=== PATIENT | female | born 1955 | race Caucasian/White ===

== ENCOUNTER → 2017-04-10 | Outpatient (CLI) | payer BC ==
[~2017-04-10] MED LIST: LORTAB 5/500 501 TAB PO
== END ==
LOC: MC.RAD 10:54
DX: Z12.31 Encounter for screening mammogram for malignant neoplasm of breast (principal)

== ENCOUNTER → 2022-05-09 | Outpatient (CLI) | payer MEDICARE, OTHER | LOC: MC.RAD 10:52 | DX: Z12.31 Encounter for screening mammogram for malignant neoplasm of breast (principal) ==

== ENCOUNTER → 2023-06-30 | Outpatient (CLI) | payer MEDICARE, OTHER | LOC: COL.RAD 08:29 | DX: K44.9 Diaphragmatic hernia without obstruction or gangrene (principal); K22.89 Other specified disease of esophagus ==

== ENCOUNTER 2023-08-09 05:16 | Inpatient (IN) | payer MEDICARE, OTHER ==
[2023-08-09] VITALS (14 sets, daily range): BP systolic 118–159; BP diastolic 66–88; PULSE 77–110; TEMP 97.8–98.2
[~2023-08-09] VITALS: Ht 157.5 cm; Wt 78.3 kg
[2023-08-09] MEDS ORDERED: AMITRIPTYLINE H25 M1 PO (06:10)
[2023-08-09] MEDS ORDERED: NEXIUM 24HR20 M1 PO (06:10)
--- NOTE | 2023-08-09 12:02 | NUR ---
PATIENT ALERT AND ORIENTED X4. VSS. PATIENT BROUGHT TO FLOOR AT APPROXIMATELY 1140. PATIENT REPORTS NAUSEA/ABDOMINAL PAIN RATING 5/10. POST OP VITALS RUNNING. ICE CHIPS GIVEN. ZOFRAN AND TYLENOL ADMINISTERED. SCD'S ON. LAP- SITES X6 CDI WITH BANDAIDS. PATIENT ON 5L PER NC SAT AT 96%. PATIENT DENIES ANY FURTHER NEEDS. CALL LIGHT IN REACH.
--- NOTE | 2023-08-09 19:15 | NUR ---
Assessment complete. A&Ox4. Denies pain/nausea/shortness of breath. VS stable. Tolerated a small amount of full liquids for dinner. Currently on 2L/NC. SCDs bilat. Left AC IV with LR@100ml/hr infusing without difficulty. LAP sites [id number]. Has been up and ambulated. Instructed we would ambulate again before the shift was over. SCDs bilat. Plan of care discussed for this shift to include meds/pain control/calling for questions/concerns. Verbalizes understanding. Call light in reach. Will monitor.
--- NOTE | 2023-08-09 22:43 | NUR ---
Patient called with C/O pain to abdomen-rating pain 7/10 on pain scale-described as constant ache with sharp intermittent. Oxycodone given per dr bain.
[2023-08-10] VITALS (770 sets, daily range): BP systolic 125–141; BP diastolic 63–74; PULSE 87–103; TEMP 36.9–37.1; O2SAT 82–100
--- NOTE | 2023-08-10 03:52 | NUR ---
Patient had a very difficult time getting down a tylenol this AM. After several drinks of water and pudding pill finally did go down. Will pass on in report to crush meds if larger. Tolerated oxycodone fine.
--- NOTE | 2023-08-10 05:09 | NUR ---
Patient resting eyes closed. No s/s of pain noted post oxycodone dose.
--- NOTE | 2023-08-10 05:36 | NUR ---
Patient had an uneventful night. Recieved two doses of oxycodone for pain. No nausea for this shift. Sill currently on 2L/NC. Left AC INT flushes well. Lap sites [id number]. Denies current needs. Call light in reach. Will monitor.
--- NOTE | 2023-08-10 08:25 | NUR ---
PATIENT ALERT AND ORIENTED X4. VSS. PATIENT HERE FOR JW DELMY FUNDOPLICATION. LAP SITES X6 CDI WITH BANDAIDS. PATIENT DENIES PASSING ANY GAS BUT DOES REPORTS SOME BURPING. IV TO LEFT AC, INT FLUSHES WELL. PATIENT ON 2L PER NC. PATIENT RESTING IN CHAIR, TOLERATING PO. DENIES ANY NAUSEA. CALL LIGHT IN REACH. NO FURTHER NEEDS AT THIS TIME.
[2023-08-10 09:34] LABS: ARTERIAL BLD GAS O2 SATURATION 86.3 % (92-100); ARTERIAL BLD GAS TCO2 CT 22.9; ARTERIAL BLOOD GAS BASE EXCESS -3.5 (-2-2); ARTERIAL BLOOD GAS HCO3 21.7 meq/L (22-26); ARTERIAL BLOOD GAS PCO2 39.7 mmHg (35-45); ARTERIAL BLOOD GAS PO2 55.8 mmHg (80-100); ARTERIAL BLOOD GAS pH 7.36 (7.35-7.45)
[2023-08-10 09:53] LABS: HEMATOCRIT 40.1 % (37.0-47.0); HEMOGLOBIN 12.7 g/dl (12.5-16.0); MEAN CELL VOLUME 91 fl (80.0-100.0); MEAN CORPUSCULAR HEMOGLOBIN 29 pg (27-31); MEAN CORPUSCULAR HGB CONC 32 g/dl (33.0-37.0); MEAN PLATELET VOLUME 9.9 fl (7.4-10.4); PLATELET COUNT 162 K/mm3 (130-400); RED BLOOD COUNT 4.41 M/mm3 (4.10-5.30); REDCELL DISTRIBUTION WIDTH-CV 14.1 % (11.5-14.5)
[2023-08-10 10:13] LABS: CALCIUM 8.8 mg/dL (8.4-10.2); CREATININE, serum 0.97 mg/dL (0.57-1.11)
[2023-08-10 10:36] LABS: TSH w REFLEX 0.368 uIU/mL (0.350-4.940)
[2023-08-10 10:38] LABS: TROPONIN-I < 0.010 ng/mL (0.00-0.033)
[2023-08-10 10:44] LABS: PARTIAL THROMBOPLASTIN TIME 28.7 SECONDS (26.0-37.0)
--- NOTE | 2023-08-10 11:52 | NUR ---
PCT CALLED THIS NURSE TO PATIENT'S ROOM. PCT WAS AMBULATING PATIENT WHEN PATIENT BEGAN TO FEEL NAUSEATED, CLAMMY, AND DIZZY. PCT BROUGHT PATIENT BACK TO ROOM AND TOOK A SET OF VS. O2 SATURATION WAS LOW IN THE 60'S AND 70'S. OXYGEN INCREASED FROM 2L. O2 SAT CONTINUES TO STAY LOW. RT NOTIFIED. OXYMASK PLACED WITH 15L ON. HOSPITALIST NOTIFIED. ORDERS FOR EKG, CXR, AND LABS. PATIENT TAKEN TO ICU ON BIPAP. REPORT GIVEN TO ICU NURSE. FAMILY NOTIFIED.
--- NOTE | 2023-08-10 14:25 | NUR ---
CHIEF DIGITAL OFFICER reviewed pt's clinical record and noted she was admitted for hernia surgery yesterday. She was transferred to the medicine floor and became SOB, then transferred to ICU. CHIEF DIGITAL OFFICER met with pt and her daughter, June Sanedrs @ the bedside this afternoon to complete initial intake for discharge planning. Pt was pleasant, oriented to person, time, place and situation. She was aware of her medical condition and the reason for her hospitalization. Pt lives alone in her own home in [place], she is retired, and independent in her ADL's, and is ambulatory without assistive devices. She has two sons who also live in [place]. Pt reports her primary care provider in [place] is Dr. Tatiana Park, ph# [phone] and she fills her prescriptions at [facility]. When asked if she had an advance directive, pt stated, "no, " and she also declined to execute one at this time. No other concerns noted.
--- NOTE | 2023-08-10 19:00 | NUR ---
REPORT RECEIVED FROM JUAN LOTT. PATIENT RESTING IN BED ON HEATED HIGH FLOW WITH OXYGEN SATS MID 90'S. NO SIGNS OF ACUTE DISTRESS NOTED AT THIS TIME. D5NS IS RUNNING AT 125 ML/HR AND HEPARIN DRIP IS RUNNING AT 12.5 UNITS/HR.
--- NOTE | 2023-08-10 19:39 | NUR ---
PT TRANSFERED FROM SURGICAL. DR MOORE WAS PRESENT WHEN PT ARRIED. PT HD SUB Q AIR PRESENT NECK AREA. STRIDOR HEARD AT NECK. PT DENIES SORTNESS OF BREATH, NAUSEA, VOMITING OR CHEST PAIN. PT WAS TAKEN TO CT VIA BED. BIPAP WEANED. IS NOT PERFORMED DUE TO ESOPHAGEAL TEAR. PT ON A HEATED HIGH FLOW. ECHO AND BLE PERFORMED. PT ON A HEPARIN DRIP. FAMILY WAS PRESENT THRU OUT THE DAY. PT STATUS IMPROVED. RESPIRATIONS EVEN AND UNLABORED. STABLE ON ROUNDS. NO SIGN OF DISTRESS AT THIS TIME.
--- NOTE | 2023-08-10 20:13 | NUR ---
UPON ASSESSMENT PATIENT HAS SUB Q AIR TO BILATERAL SIDES OF NECK AND BILATERAL UPPER CHEST. SUB Q AIR IS UNCHANGED. PATIENT HAS NO COMPLAINTS REGARDING SOA AT THIS TIME. HIGH FLOW NASAL INTERFACE IS SET AT 45L AND 60% WITH O2 SATS AT 97%.
[2023-08-11] VITALS (992 sets, daily range): BP systolic 124–134; BP diastolic 73–84; PULSE 85–102; TEMP 97.6–98.7; O2SAT 75–100
[2023-08-11 06:01] LABS: BASO % 0.4 % (0.0-2.0); EOS % 0.8 % (0.0-4.0); GRAN # 3.7 K/mm3 (1.4-6.5); GRAN % 69.5 % (42.2-75.2); LYMPH # 1.1 K/mm3 (1.2-3.4); LYMPH % 20.2 % (20.0-51.0); MEAN CELL VOLUME 91 fl (80.0-100.0); MEAN CORPUSCULAR HGB CONC 31 g/dl (33.0-37.0); MEAN PLATELET VOLUME 10.6 fl (7.4-10.4); MONO # 0.5 K/mm3 (0.1-0.6); MONO % 9.1 % (1.7-9.3); PLATELET COUNT 126 K/mm3 (130-400); RED BLOOD COUNT 3.82 M/mm3 (4.10-5.30); REDCELL DISTRIBUTION WIDTH-CV 14.3 % (11.5-14.5)
[2023-08-11 06:06] LABS: HEMATOCRIT 34.9 % (37.0-47.0); HEMOGLOBIN 10.7 g/dl (12.5-16.0); MEAN CORPUSCULAR HEMOGLOBIN 28 pg (27-31)
[2023-08-11 06:16] LABS: ALBUMIN 2.7 gm/dL (3.4-4.8); BILIRUBIN,TOTAL 0.6 mg/dL (0.2-1.2); CALCIUM 7.9 mg/dL (8.4-10.2); CREATININE, serum 0.83 mg/dL (0.57-1.11); POTASSIUM 3.8 mmol/L (3.5-4.5)
--- NOTE | 2023-08-11 07:24 | NUR ---
0715 BEDSIDE REPORT RECEIVED FROM JUAN LOUIS. PT RESTING IN BED, VSS. PT REMAINS ON AIRVO AT 45L, 50% FIO2. PT DENIES ANY PAIN OR SHORTNESS OF BREATH. LAP SITES TO ABD GLUED AND INTACT. PT ALERT AND ORIENTED, CALL LIGHT IN REACH.
--- NOTE | 2023-08-11 08:37 | NUR ---
NO INCENTIVE SPIROMETER IN ROOM, RT CHRISTIAN NOTIFIED.
--- NOTE | 2023-08-11 09:52 | NUR ---
Initial visit; Patient thanked Geophysical Laboratory Chief for looking in on her and offering God's blessings and keeping her in Geophysical Laboratory Chief's prayers.
--- NOTE | 2023-08-11 19:00 | NUR ---
REPORT RECEIVED FROM JUAN HASSAN. PATIENT IS IN BED RESTING COMFORTABLY ON 3L NC WITH O2 SATS AT 96%. D5NS IS RUNNING AT 75ML/HR AND HEPARIN IS RUNNING AT 800 ML/HR WITH NEXT HEPXA DUE WITH MORNING LABS. NO SIGNS OF ACUTE DISTRESS NOTED AT THIS TIME.
[2023-08-12] VITALS (508 sets, daily range): BP systolic 135–175; BP diastolic 68–87; PULSE 85–98; TEMP 98.1–98.2; O2SAT 60–99
[2023-08-12 05:25] LABS: HEMOGLOBIN 11.3 g/dl (12.5-16.0); MEAN CELL VOLUME 91 fl (80.0-100.0); MEAN CORPUSCULAR HEMOGLOBIN 29 pg (27-31); MEAN CORPUSCULAR HGB CONC 32 g/dl (33.0-37.0); MEAN PLATELET VOLUME 10.2 fl (7.4-10.4); PLATELET COUNT 131 K/mm3 (130-400); RED BLOOD COUNT 3.89 M/mm3 (4.10-5.30); REDCELL DISTRIBUTION WIDTH-CV 13.8 % (11.5-14.5)
[2023-08-12 05:26] LABS: HEMATOCRIT 35.3 % (37.0-47.0)
--- NOTE | 2023-08-12 08:00 | NUR ---
PT RESTING WITH EMESIS BAG HELD AND REPORTS NAUSEA. NAUSEA MEDS REVIEWED. PT REPORTS NAUSEA OCCURS WITH LACK OF BM AND SHE HAS EXP. SIMILAR EPISODES AT HOME. DENIES PAIN AT THIS TIME, BED IN LOW POSITION, CARE PLAN REVIEWED, ALL QUESTIONS ANSWERED, ASSESSMENT COMPLETED. 6 ABD INCISIONS NOTED WITH BANDAIDS. BANDAIDS REMOVED TO ALL EXCEPT LLQ NOTED TO LOOK WET. PT ASSISTED TO TOILET WITH STEADY GAIT. DENIES ADDITIONAL NEEDS AT THIS TIME.
--- NOTE | 2023-08-12 12:24 | NUR ---
Stone Lathe Operator rounds: Stone Lathe Operator visit attempted. RN was with Patient.
--- NOTE | 2023-08-12 15:20 | NUR ---
REPORT GIVEN TO JUAN FREEMAN ON THE SURGICAL UNIT AT 1444. PT TRANSFERED TO [facility] VIA WHEELCHAIR X2 STAFF AT THIS TIME. UPON ENTRY TO THE ROOM, THE NURSE ENTERED AND PATIENT WAS ASSISTED WITH SBA TO BATHROOM. ALL QUESTIONS ANSWERED. NO ADDITIONAL NEEDS VOICED AT THIS TIME.
--- NOTE | 2023-08-12 16:23 | NUR ---
PT ARRIVED TO FLOOR FROM ICU. HEPARIN DRIP RUNNING AT 800 UNITS PER HOUR. PT IS ON 2L O2. LAP SITES ARE CDI, PT RATES PAIN 7/10 IN THE ABDOMEN AND IS HAVING NAUSEA. PT HAD BOWEL MOVEMENT.
[2023-08-13] VITALS (7 sets, daily range): BP systolic 143–169; BP diastolic 75–82; PULSE 78–97; TEMP 98.1–99
--- NOTE | 2023-08-13 06:01 | NUR ---
PT UP TO BR WITH SBA. PAIN CONTROLLED WITH ROXICODONE. NO RESP DISTRESS. O2 2L NC. PT TOOK SMALL BITES OF OATMEAL THROUGH THE SHIFT. TAKING PO FLUIDS WELL. HEPARIN CONTINUES. LAB HERE TO DRAW HEP XA.
--- NOTE | 2023-08-13 06:45 | NUR ---
PT RELATES MEDICATION CAUSING A BAD TASTE IN MOUTH/ NAUSEA. GAVE ZOFRAN. ZOSYN COMPLETED. HEP XA RESULT PENDING. SHIFT REPORT GIVEN TO LYDIA MARTINEZ.
[2023-08-13 06:52] LABS: CALCIUM 8.1 mg/dL (8.4-10.2); CREATININE, serum 0.81 mg/dL (0.57-1.11); MAGNESIUM 1.8 mg/dL (1.6-2.6); POTASSIUM 3.3 mmol/L (3.5-4.5)
--- NOTE | 2023-08-13 09:38 | NUR ---
PT LAYING IN BED, ALERT AND ORIENTEDX4. PT IS VERY NAUSEOUS THIS MORNING. NO COMPLAINTS OF PAIN AT THIS TIME. PT IS REFUSING TO TAKE ALL MEDICATIONS INCLUDING IV MEDS EXCEPT SHE IS OKAY WITH THE HEPARIN CONTINUING TO RUN. PT THINKS THE MEDICATIONS ARE WHAT IS CAUSING HER TO TO BE NAUSEOUS.
--- NOTE | 2023-08-13 20:03 | NUR ---
Patient assessed at this time, reports the phenergan did take effect, took her eliquis at this time, but she wanted to wait for a little bit to take her other pills such as her tylenol and elavil, IV to left AC infusing well, D5NS at 75cc/hr, has been passing gas, BS hypoactive, denies further needs, call light and personal items within reach, will continue to monitor.
--- NOTE | 2023-08-13 23:19 | NUR ---
Called Nurys, the PA d/t patient wanted to take her oral potassium, received an order for BMP.
[2023-08-14 00:02] LABS: CALCIUM 8.3 mg/dL (8.4-10.2); CREATININE, serum 0.72 mg/dL (0.57-1.11); POTASSIUM 3.3 mmol/L (3.5-4.5)
--- NOTE | 2023-08-14 00:18 | NUR ---
Informed Nurys the PA that potassium is still 3.3, received an order for potassium protocol.
[2023-08-14 03:16] VITALS: BP 162/94; PULSE 92; TEMP 98.3
--- NOTE | 2023-08-14 03:55 | NUR ---
Was informed by the tech that patient is nauseaous, this nurse went into her room and offered her IV Zofran or IV phenergan. Patient refused both the medicine and thinks that they are both ineffective. Explained to her the importance of taking the IV protonix. Called Nurys the PA regarding this matter, and she's okay giving the IV protonix early. No new orders received at this time. Patient will call when she's ready taking the meds.
--- NOTE | 2023-08-14 04:18 | NUR ---
Patient requested to take IV zofran at this time, will continue to monitor.
[2023-08-14 07:23] LABS: HEMATOCRIT 34.8 % (37.0-47.0); HEMOGLOBIN 11.1 g/dl (12.5-16.0); MEAN CELL VOLUME 88 fl (80.0-100.0); MEAN CORPUSCULAR HEMOGLOBIN 28 pg (27-31); MEAN CORPUSCULAR HGB CONC 32 g/dl (33.0-37.0); MEAN PLATELET VOLUME 10.3 fl (7.4-10.4); PLATELET COUNT 138 K/mm3 (130-400); RED BLOOD COUNT 3.94 M/mm3 (4.10-5.30); REDCELL DISTRIBUTION WIDTH-CV 13.2 % (11.5-14.5)
[2023-08-14 07:30] LABS: CALCIUM 8.4 mg/dL (8.4-10.2); CREATININE, serum 0.7 mg/dL (0.57-1.11); MAGNESIUM 1.6 mg/dL (1.6-2.6); POTASSIUM 3.3 mmol/L (3.5-4.5)
--- NOTE | 2023-08-14 07:49 | NUR ---
Pt not wanting to take any medications until she talks with Dr Martinez. She was under the impression that he was stopping all medications but the blood thinner. Pt also concerned that her body is rejecting the mesh that was put in during surgery. Pt concerned about taking the blood thinner incase it would keep her from going back to surgery. Pt was then stating that she was planning on going home today. Discussed all of this with her. Reviewed taking the protonix as it would possibly help with the nausea and that I reviewed Dr Momin notes about stopping narcotics. Explained that I did not see any reason to not take the protonix. Also discussed my concern for her going home if she is not able to keep any food or fluids down and the risk of getting dehydrated. Pt nodded stating she didn't think of that. I mentioned her probably needing potassium, but explained I could give it through her IV, so was okay with that. Pt having loose stool, but stated this was normal for her as she has a spastic colon. Pt reports pain is tolerable at rest. It does increase to 8/10 with movement, but states she is okay
[2023-08-14 07:52] VITALS: BP 152/76; PULSE 90; TEMP 98.2
[2023-08-14] MEDS ORDERED: ZOFRAN 4MG T4 MG/TAB PO (08:11)
--- NOTE | 2023-08-14 09:35 | NUR ---
Dr Martinez in recently to see pt, discussed medications as well as orders for new medications. Pt verbalized understanding and was agreeable to take scheduled medications. Pt refused miralax as she has been having loose stools. Pt continues to dry heave, but has not vomited any during my shift. Encouraged her to take in PO when she feels like she can. Pt currently sitting up on the bench in room. Pt is steady on her feet. Call light within reach, pt reporting pain is tolerable at this time
--- NOTE | 2023-08-14 12:00 | NUR ---
Encouraged pt to walk in the halls, pt refusing at this time, stated that she is too exhausted.
[2023-08-14 12:40] VITALS: BP 158/87; PULSE 82; TEMP 98
--- NOTE | 2023-08-14 13:20 | NUR ---
Notified Dr Castaneda that pt heart rate is consistently in the 120s. Pt is resting in bed, no issues or complaints verbalized
--- NOTE | 2023-08-14 14:19 | NUR ---
Pt resting with eyes closed, even non labored breathing
[2023-08-14 16:01] VITALS: BP 145/74; PULSE 86; TEMP 98.2
--- NOTE | 2023-08-14 17:15 | NUR ---
Continue to remind pt to use IS. Pt does need consistent reminders on how to use the IS. Pt does cough after using the IS correctly. Discussed the importance of using it to prevent pneumonia
--- NOTE | 2023-08-14 17:36 | NUR ---
Pt continues to report that she feels better, nausea much improved, but she also has not increased her intake. Pt only sipping on liquids. Any time I mention different items, but just reports that she does not have an appetite. Spouse has remained at bedside
--- NOTE | 2023-08-14 19:00 | NUR ---
Assessment complete. A&Ox4. Denies pain/nausea. Noted to be short of breath with activity. CUrrently on O2@1L/NC. VS stable. Has not taken in much PO this shift. States she is working on it and will continue to try to eat pudding. Patients PCM at bedside visiting. Lap sites x5-edges well approximated. Lower transverse Lap site X1 with bandaid-no drainage noted. IV to right forearm with D5NS@75ml/hr infusing without difficulty. TELE reporting SR. Plan of care discussed for this shift to include meds/pain control/ambulating/IS/calling for questions/concers. Verbalizes understanding. Call light in reach. Will monitor.
[2023-08-14 19:44] VITALS: BP 142/63; PULSE 86; TEMP 97.9
[2023-08-14 23:05] VITALS: BP 154/84; PULSE 87; TEMP 98.5
--- NOTE | 2023-08-15 00:29 | NUR ---
Patient resting eyes closed. No s/s of distress noted.
[2023-08-15 03:02] VITALS: BP 144/77; PULSE 78; TEMP 98.6
--- NOTE | 2023-08-15 05:10 | NUR ---
Patient had an uneventful night. Denied pain/shortness of breath. Denied nausea but states she was having quite a bit of belching earlier in the shift. VS remained stable. IV to right FA with D5NS@75ml/hr. Denies current needs. Call light in reach. Will monitor.
[2023-08-15 07:47] VITALS: BP 159/89; PULSE 96; TEMP 98.3
[2023-08-15] MEDS ORDERED: REGLAN 10MG10 MG/TAB PO (08:17)
[2023-08-15] MEDS ORDERED: ELIQUIS 5MG PO (08:17)
--- NOTE | 2023-08-15 09:00 | NUR ---
PATIENT ALERT AND ORIENTED X4. VSS. PATIENT HERE FOR JW BROCK. LAPS X5, CDI WITH SKIN GLUE. LAP X1 WITH MINIMAL DRAINAGE COVERED WITH BANDAID. PATIENT TOLERATING FULL LIQUID DIET, WILL ADVANCE DIET. PATIENT REPORTS SEVERAL BM'S. IV TO RIGHT WRIST WITH FLUIDS RUNNING AT 75ML/HOUR. PATIENT RESTING IN BED, NO FURTHER NEEDS AT THIS TIME. CALL LIGHT IN REACH.
[2023-08-15 11:26] VITALS: BP 171/72; PULSE 113; TEMP 97.8
--- NOTE | 2023-08-15 15:07 | NUR ---
Hand Glass Cutter met with patient to review discharge plan and recommendation for home oxygen. SW reviewed DME providers with patient and she selected [facility]. SW also presented and reviewed IM form. Patient verbalized understanding and provided signature. SW placed form in chart then provided copy to patient. SW contacted [facility] and sent over a referral with orders. SW coordinated with patient and [facility] to have patient's friend, Kenji filler picker her supplies on his way to come get her and bring her home. Discharge Plan: Home
--- NOTE | 2023-08-15 15:09 | NUR ---
DISCHARGE INSTRUCTIONS PROVIDED. PATIENT EDUCATION GIVEN REGARDING ELIQUIS USE, HOME OXYGEN USE AND NEEDS. FOLLOW UP APPOINTMENT DISCUSSED. IV DC'D. MEDICATIONS REVIEWED. PATIENT DENIES ANY QUESTIONS OR CONCERNS.
--- NOTE | 2023-08-15 15:42 | NUR ---
PATIENT ESCORTED OUT WITH BELONGINGS VIA WHEELCHAIR.
== END 2023-08-15 15:42 | disposition home or self-care (01) | DRG 326 ==
LOC: SDCO 05:16 → SURG 10:30 → SDCO 08-10 09:40 → SURG 08-10 09:41 → ICU 08-10 09:41 → SURG 08-10 10:26 → ICU 08-10 10:27 → SDCO 08-10 10:27 → SURG 08-12 15:30
PROVIDERS: Internal Medicine; Internal Medicine Sleep Medicine; Physician Assistant; ADMIT Surgery
PROC: 0BUT4JZ Supplement Diaphragm with Synthetic Substitute, Percutaneous Endoscopic Approach (ICD-10-PCS; principal; 2023-08-10)
PROC: 8E0W4CZ Robotic Assisted Procedure of Trunk Region, Percutaneous Endoscopic Approach (ICD-10-PCS; 2023-08-10)
DX: K44.9 Diaphragmatic hernia without obstruction or gangrene (principal); I26.99 Other pulmonary embolism without acute cor pulmonale; J96.01 Acute respiratory failure with hypoxia; K21.9 Gastro-esophageal reflux disease without esophagitis; R00.0 Tachycardia, unspecified
CPT/HCPCS: OP; A9284; C1781; C9113; J0690; J1100; J1170; J1644; J1920; J2371; J2405; J2543; J2550; J2704; J2765; J3010; J3475; J3480; J7042; J7120; Q9967

== ENCOUNTER → 2024-01-01 | Outpatient (CLI) | payer MEDICARE, OTHER ==
[~2024-01-01] MED LIST changes: +AMITRIPTYLINE H25 M1 PO; +ELIQUIS 5MG PO; +NEXIUM 24HR20 M1 PO; +REGLAN 10MG10 MG/TAB PO; +ZOFRAN 4MG T4 MG/TAB PO
== END ==
LOC: COL.RAD 10:27
DX: K21.9 Gastro-esophageal reflux disease without esophagitis (principal); K44.9 Diaphragmatic hernia without obstruction or gangrene

== ENCOUNTER → 2024-04-04 | Outpatient (CLI) | payer MEDICARE, OTHER | LOC: MC.RAD 10:23 | DX: Z12.31 Encounter for screening mammogram for malignant neoplasm of breast (principal) ==